=== PATIENT | male | born 1960 | race Caucasian/White ===

== ENCOUNTER 2016-12-17 12:12 | Emergency (ER) | payer MEDICARE, OTHER ==
[~2016-12-17 12:12] MED LIST: ALBUTEROL0.63 MG/3 NEB; ALBUTEROL2.5 MG/3 M INH; CEFDINIR300 MG PO; CLARITIN10 MG PO; CLEOCIN HCL300 MG PO; COLACE100 MG PO; DUONEB 2.5-0.5MG3 ML INH; DUONEB 2.5-0.5MG3 ML NEB; GUAIFENESIN DM120 ML PO; IBUPROFEN800 MG PO; LEVAQUIN500 MG PO; LEVAQUIN750 MG PO; LEVOFLOXACIN500 MG PO; LISINOPRIL10 MG PO; LORATADINE-D 21 EACH PO; MEDROL4 M1 PO; MOTRIN600 MG PO; NICODERM 14MG PA1 EA TD; NICODERM 21MG PA1 EA TD; NICODERM 7MG PAT1 EA TD; NICOTINE PATCH1 EAC3 TD; OMEPRAZOLE40 MG PO; PAIN RELIEF650 MG PO; PEPCID20 MG PO; PREDNISONE10 M1 PO; PREDNISONE10 MG PO; PROTONIX40 MG PO; Q-TUSSIN DM SY118 ML PO; SINGULAIR10 MG PO; SPIRIVA18 MCG INH; SYMBICORT 16010.2 GM INH; VENTOLIN HFA8 GM INH; ZESTRIL10 MG PO
== END 2016-12-17 16:47 | disposition other institution (70) ==
LOC: ER 12:12
DX: J44.0 Chronic obstructive pulmonary disease with (acute) lower respiratory infection (principal); J20.9 Acute bronchitis, unspecified; J44.1 Chronic obstructive pulmonary disease with (acute) exacerbation; R00.0 Tachycardia, unspecified; I10 Essential (primary) hypertension; F17.210 Nicotine dependence, cigarettes, uncomplicated
CPT/HCPCS: 99284; 99285-25

== ENCOUNTER 2016-12-17 12:12 | Inpatient (IN) | payer MEDICARE, OTHER ==
[2016-12-17 13:02] LABS: BASO # 0.1 10_X3_uL (0.0-0.1); BASO % 0.5 % (0.2-1.2); EOS # 0.3 10_X3_uL (0.0-0.5); EOS % 1.4 % (0.8-7.0); GRAN # 14.9 10_X3_uL (1.8-5.4); GRAN % 79.3 % (34.0-67.9); HEMATOCRIT 46.4 % (40-51); HEMOGLOBIN 15.7 g/dL (13.7-17.5); LYMPH # 2.3 10_X3_uL (1.3-3.6); LYMPH % 12.3 % (21.8-53.1); MEAN CORPUSCULAR HEMOGLOBIN 30.9 pg (27.0-33.0); MEAN CORPUSCULAR HGB CONC 33.8 g/dL (32.0-36.0); MEAN CORPUSCULAR VOLUME 91.3 fL (79-92); MEAN PLATELET VOLUME 10.6 fl (7.5-11.5); MONO # 1.2 10_X3_uL (0.3-0.8); MONO % 6.5 % (5.3-12.2); PLATELET COUNT 212 x10_3/uL (163-337); RED BLOOD COUNT 5.08 x10_6/uL (4.6-6.1); RED CELL DISTRIBUTION WIDTH 14.9 % (11.6-14.4); WHITE BLOOD COUNT 18.8 x10_3/uL (4.2-9.1)
[2016-12-17 13:19] LABS: ALBUMIN 4.5 gm/dL (3.4-5.0); ALKALINE PHOSPHATASE 82 U/L (50-136); ALT/SGPT 12 U/L (7.53-40.17); AST/SGOT 19 U/L (6.66-35.34); BILIRUBIN,TOTAL 0.41 mg/dL (0.0-1.0); BLOOD UREA NITROGEN 10 mg/dL (7-18); CARBON DIOXIDE 29 mmol/L (21-32); CREATINE KINASE 62 U/L (35-232); CREATININE 0.5 mg/dL (0.6-1.3); GLUCOSE,RANDOM 91 mg/dL (70-99); POTASSIUM 4.3 mmol/L (3.5-5.1); SODIUM 133 mmol/L (136-145); TOTAL PROTEIN 7.7 gm/dL (6.4-8.2)
[2016-12-17 13:30] LABS: ARTERIAL BLD GAS O2 SATURATION 98.1 % (94-98); ARTERIAL BLOOD GAS BASE EXCESS 3.5 mmol/L (-2.0-3.0); ARTERIAL BLOOD GAS HCO3 28.8 mmol/L (22-26); ARTERIAL BLOOD GAS PCO2 48.1 mmHg (35-48); ARTERIAL BLOOD GAS pH 7.39 (7.35-7.45)
[2016-12-17 16:08] LABS: CALCIUM 9.7 mg/dL (8.7-10.7)
[2016-12-18 11:53] LABS: HEMATOCRIT 41.1 % (40-51); HEMOGLOBIN 13.6 g/dL (13.7-17.5); MEAN CORPUSCULAR HEMOGLOBIN 30.4 pg (27.0-33.0); MEAN CORPUSCULAR HGB CONC 33.1 g/dL (32.0-36.0); MEAN CORPUSCULAR VOLUME 91.7 fL (79-92); MEAN PLATELET VOLUME 10.6 fl (7.5-11.5); RED BLOOD COUNT 4.48 x10_6/uL (4.6-6.1); RED CELL DISTRIBUTION WIDTH 14.4 % (11.6-14.4)
[2016-12-18 12:02] LABS: WHITE BLOOD COUNT 21.1 x10_3/uL (4.2-9.1)
[2016-12-18 12:13] LABS: BLOOD UREA NITROGEN 10 mg/dL (7-18); CALCIUM 9.2 mg/dL (8.7-10.7); CARBON DIOXIDE 29 mmol/L (21-32); CREATININE 0.6 mg/dL (0.6-1.3); GLUCOSE,RANDOM 133 mg/dL (70-99); POTASSIUM 4.2 mmol/L (3.5-5.1); SODIUM 131 mmol/L (136-145)
== END 2016-12-18 13:49 | disposition home or self-care (01) | DRG 190 ==
LOC: ER 12:12 → MS 16:47 → UNDODEPER 12-20 09:16
PROVIDERS: Emergency Medicine; ADMIT Family Medicine
DX: J44.1 Chronic obstructive pulmonary disease with (acute) exacerbation (principal); J96.01 Acute respiratory failure with hypoxia; D72.829 Elevated white blood cell count, unspecified; I10 Essential (primary) hypertension; H61.21 Impacted cerumen, right ear; Z80.9 Family history of malignant neoplasm, unspecified; F17.210 Nicotine dependence, cigarettes, uncomplicated; Z79.899 Other long term (current) drug therapy; Z79.1 Long term (current) use of non-steroidal anti-inflammatories (NSAID)
CPT/HCPCS: 36415; 36600; 71010; 80048; 80053; 82550; 82553; 82803; 83605; 83880; 85025; 86738; 87040; 87449; 93005; 94640; 94664; 96365; 96375; 99070; 99284; 99285-25; J2930

== ENCOUNTER 2017-01-04 14:53 | Emergency (ER) | payer MEDICARE, OTHER | END 2017-01-04 16:38 | disposition home or self-care (01) | LOC: ER 14:53 | DX: J44.9 Chronic obstructive pulmonary disease, unspecified (principal); R06.02 Shortness of breath; R06.2 Wheezing; I10 Essential (primary) hypertension; Z99.81 Dependence on supplemental oxygen; F17.210 Nicotine dependence, cigarettes, uncomplicated; Z79.899 Other long term (current) drug therapy | CPT/HCPCS: 71020; 87400; 94664; 96372; 99284; 99285-25; J2930 ==

== ENCOUNTER 2017-03-11 11:06 | Emergency (ER) | payer MEDICARE, OTHER | END 2017-03-11 13:39 | disposition other institution (70) | LOC: ER 11:06 | DX: J44.0 Chronic obstructive pulmonary disease with (acute) lower respiratory infection (principal); J18.9 Pneumonia, unspecified organism; J44.1 Chronic obstructive pulmonary disease with (acute) exacerbation; J45.909 Unspecified asthma, uncomplicated; I10 Essential (primary) hypertension; F17.210 Nicotine dependence, cigarettes, uncomplicated; Z99.81 Dependence on supplemental oxygen | CPT/HCPCS: 99284; 99285-25 ==

== ENCOUNTER 2017-03-11 11:06 | Inpatient (IN) | payer MEDICARE, OTHER ==
[~2017-03-11] VITALS: Ht 160 cm; Wt 44.0 kg
[2017-03-11 11:40] LABS: ARTERIAL BLD GAS O2 SATURATION 97.1 % (94-98); ARTERIAL BLOOD GAS HCO3 28.9 mmol/L (22-26); ARTERIAL BLOOD GAS PCO2 51.7 mmHg (35-48); ARTERIAL BLOOD GAS pH 7.37 (7.35-7.45)
[2017-03-11 11:51] LABS: BASO # 0.1 10_X3_uL (0.0-0.1); BASO % 0.6 % (0.2-1.2); EOS # 0.4 10_X3_uL (0.0-0.5); EOS % 1.9 % (0.8-7.0); GRAN # 16.4 10_X3_uL (1.8-5.4); GRAN % 82.1 % (34.0-67.9); HEMATOCRIT 45.9 % (40-51); LYMPH # 2.1 10_X3_uL (1.3-3.6); LYMPH % 10.3 % (21.8-53.1); MEAN CORPUSCULAR HEMOGLOBIN 30.5 pg (27.0-33.0); MEAN CORPUSCULAR HGB CONC 32.7 g/dL (32.0-36.0); MEAN CORPUSCULAR VOLUME 93.3 fL (79-92); MEAN PLATELET VOLUME 10.6 fl (7.5-11.5); MONO % 5.1 % (5.3-12.2); PLATELET COUNT 202 x10_3/uL (163-337); RED BLOOD COUNT 4.92 x10_6/uL (4.6-6.1); RED CELL DISTRIBUTION WIDTH 15.2 % (11.6-14.4)
[2017-03-11 12:09] LABS: ALBUMIN 4.4 gm/dL (3.4-5.0); ALKALINE PHOSPHATASE 80 U/L (50-136); ALT/SGPT 13 U/L (7.53-40.17); AST/SGOT 18 U/L (6.66-35.34); BILIRUBIN,TOTAL 0.49 mg/dL (0.0-1.0); BLOOD UREA NITROGEN 8 mg/dL (7-18); CALCIUM 9.6 mg/dL (8.7-10.7); CARBON DIOXIDE 28 mmol/L (21-32); CREATINE KINASE 54 U/L (35-232); CREATININE 0.5 mg/dL (0.6-1.3); GLUCOSE,RANDOM 97 mg/dL (70-99); POTASSIUM 4.6 mmol/L (3.5-5.1); SODIUM 130 mmol/L (136-145); TOTAL PROTEIN 7.5 gm/dL (6.4-8.2)
[2017-03-13 06:50] LABS: HEMATOCRIT 41.8 % (40-51); HEMOGLOBIN 13.7 g/dL (13.7-17.5); MEAN CORPUSCULAR HEMOGLOBIN 30.3 pg (27.0-33.0); MEAN CORPUSCULAR HGB CONC 32.8 g/dL (32.0-36.0); MEAN CORPUSCULAR VOLUME 92.5 fL (79-92); MEAN PLATELET VOLUME 10.8 fl (7.5-11.5); RED BLOOD COUNT 4.52 x10_6/uL (4.6-6.1); RED CELL DISTRIBUTION WIDTH 15.1 % (11.6-14.4)
[2017-03-13 06:59] LABS: ALBUMIN 3.9 gm/dL (3.4-5.0); ALKALINE PHOSPHATASE 71 U/L (50-136); ALT/SGPT 9 U/L (7.53-40.17); AST/SGOT 17 U/L (6.66-35.34); BILIRUBIN,TOTAL 0.28 mg/dL (0.0-1.0); BLOOD UREA NITROGEN 13 mg/dL (7-18); CALCIUM 9.4 mg/dL (8.7-10.7); CARBON DIOXIDE 30 mmol/L (21-32); CREATININE 0.5 mg/dL (0.6-1.3); GLUCOSE,RANDOM 138 mg/dL (70-99); POTASSIUM 4.9 mmol/L (3.5-5.1); SODIUM 127 mmol/L (136-145); TOTAL PROTEIN 6.7 gm/dL (6.4-8.2)
[2017-03-13 07:06] LABS: WHITE BLOOD COUNT 28.4 x10_3/uL (4.2-9.1)
[2017-03-14 07:00] LABS: HEMOGLOBIN 13.5 g/dL (13.7-17.5); MEAN CORPUSCULAR HEMOGLOBIN 30.3 pg (27.0-33.0); MEAN CORPUSCULAR HGB CONC 32.9 g/dL (32.0-36.0); MEAN CORPUSCULAR VOLUME 91.9 fL (79-92); MEAN PLATELET VOLUME 11.1 fl (7.5-11.5); RED BLOOD COUNT 4.46 x10_6/uL (4.6-6.1); RED CELL DISTRIBUTION WIDTH 14.9 % (11.6-14.4)
[2017-03-14 07:02] LABS: WHITE BLOOD COUNT 21.4 x10_3/uL (4.2-9.1)
[2017-03-15 06:56] LABS: HEMATOCRIT 42.9 % (40-51); MEAN CORPUSCULAR HGB CONC 32.6 g/dL (32.0-36.0); MEAN CORPUSCULAR VOLUME 91.9 fL (79-92); MEAN PLATELET VOLUME 10.2 fl (7.5-11.5); RED BLOOD COUNT 4.67 x10_6/uL (4.6-6.1); RED CELL DISTRIBUTION WIDTH 14.7 % (11.6-14.4); WHITE BLOOD COUNT 11.7 x10_3/uL (4.2-9.1)
== END 2017-03-15 11:42 | disposition home or self-care (01) | DRG 178 ==
LOC: ER 11:06 → MS 13:39
PROVIDERS: Emergency Medicine; Family Medicine; ADMIT Family Medicine
DX: J15.5 Pneumonia due to Escherichia coli (principal); J44.0 Chronic obstructive pulmonary disease with (acute) lower respiratory infection; J44.1 Chronic obstructive pulmonary disease with (acute) exacerbation; J20.9 Acute bronchitis, unspecified; I10 Essential (primary) hypertension; K59.00 Constipation, unspecified; D72.829 Elevated white blood cell count, unspecified; F17.210 Nicotine dependence, cigarettes, uncomplicated; Z79.899 Other long term (current) drug therapy; Z83.3 Family history of diabetes mellitus; Z80.9 Family history of malignant neoplasm, unspecified; Z82.49 Family history of ischemic heart disease and other diseases of the circulatory system
CPT/HCPCS: 36415; 36600; 71010; 71020; 71250; 80053; 82550; 82553; 82803; 83605; 83880; 85025; 86738; 87040; 87070; 87186; 87205; 87449; 93005; 94640; 94664; 96365; 96375; 99070; 99284; 99285-25; J2920; J2930

== ENCOUNTER 2017-03-16 00:24 | Emergency (ER) | payer MEDICARE, OTHER | END 2017-03-16 02:42 | disposition home or self-care (01) | LOC: ER 00:24 | DX: J44.9 Chronic obstructive pulmonary disease, unspecified (principal); J45.998 Other asthma; R06.02 Shortness of breath; R53.1 Weakness; Z99.81 Dependence on supplemental oxygen; I10 Essential (primary) hypertension | CPT/HCPCS: 71250; 99283; 99284-25 ==